=== PATIENT | female | born 1975 | race Caucasian/White ===

== ENCOUNTER → 2017-06-23 | Outpatient (CLI) | payer OTHER | LOC: GMAH 10:25 | PROVIDERS: ATTEND Family Medicine | DX: E03.9 Hypothyroidism, unspecified (principal) ==

== ENCOUNTER → 2018-06-29 | Outpatient (CLI) | payer BC | LOC: GMAH 10:42 | PROVIDERS: ATTEND Family Medicine | DX: E03.9 Hypothyroidism, unspecified (principal) ==

== ENCOUNTER 2018-09-10 15:00 | Inpatient (IN) | payer BC ==
--- NOTE | 2018-09-10 15:11 | HP ---
SUPERVISING PHYSICIAN: Zeeshan Martinez M.D. CHIEF COMPLAINT: Worsening shortness of breath and treatment failure for right sided pneumonia. HISTORY OF PRESENT ILLNESS: Ms. Jimenez is a 43 year-old female patient that was initially seen [address] Aguiar's office for upper respiratory symptoms. At that time she was found to have chest congestion and what appeared to be on x-ray a perihilar pneumonia and was started on treatment initially with an injection of antibiotics and steroids, and an outpatient treatment with Z-Primitivo and Keflex for 7 days. She then reported back to Dr. Aguiar's office this past Monday a week ago with minimal improvement in symptoms and was started on Biaxin as well as given a steroid Medrol Dosepak, and another antibiotic injection. Dr. Aguiar at that time re-did an x-ray and again showed questionable pneumonia and given that she had minimal response, recommended the patient be admitted, however the patient refused admission to the hospital and continued with outpatient measures for treatment. She reported back today with very minimal response to treatment, if not worse. Dr. Aguiar then requested that the patient be directly admitted for failure of treatment of right sided pneumonia having been on 2 weeks of antibiotics, updraft treatments and steroid injections as well as oral steroids. She was admitted in stable condition directly from the clinic. PAST MEDICAL HISTORY: 1. Hypertension. 2. Hypothyroidism. PAST SURGICAL HISTORY: 1. Two section, one in 1996 and one in 2001. 2. Tubal ligation in 2002. HOME MEDICATIONS: 1. Albuterol nebulizer updrafts 0.083% q.i.d. as directed and p.r.n. 2. Albuterol inhaler 2 puffs every 6 hours as needed for wheezing. 3. Levothyroxine 0.75 mg one daily. 4. Lisinopril/Hydrochlorothiazide 10 mg/12.5 mg one b.i.d. 5. Promethazine with codeine 6.25 mg/10 mg, 5 mL syrup 1 to 2 teaspoons every 4 hours as needed. ALLERGIES: NO KNOWN DRUG ALLERGIES. FAMILY HISTORY: Mom has hypothyroidism and hypertension. Father is unknown. She has 1 brother who has hypertension, a sister has hypertension. Two children who are both healthy. SOCIAL HISTORY: The patient has never smoked. She drinks alcohol very infrequently. Does not use illicit drugs. She currently works in an [employer]. She is and lives in [place], [place]. REVIEW OF SYSTEMS: CONSTITUTIONAL: Negative for chills, fevers or unintentional weight gain. HEENT: Negative for ear aches, sore throat, nasal congestion, vision changes. CARDIOVASCULAR: Negative for chest pains, palpitations, syncopal episodes, tachycardia. RESPIRATORY: Positive for productive cough but negative for any worsening exertional dyspnea. GASTROINTESTINAL: Negative for constipation, diarrhea, abdominal pains. MUSCULOSKELETAL: Negative for any arthralgias, back pain or myalgias. INTEGUMENT: Negative for any jaundice or rashes. NEUROLOGIC: Negative for ataxia, headaches, seizure activity or other focal deficits. PHYSICAL EXAMINATION: VITAL SIGNS: Temperature on admission was 98.2, pulse initially was 120, blood pressure 125/92, respirations 18, satting 95% on room air at rest. Admission weight 145.9 kg with a body mass index of 53.8. GENERAL: On admission to the Medical/Surgical floor the patient appears to be comfortable, resting, in no acute distress. She is alert. HEENT: Tympanic membranes are clear bilaterally. Oropharynx is pink and moist without any lesions. NECK: Supple, non-tender. Full range of motion. CHEST: Lung sounds are diminished towards the bases with some notable rhonchi heard on the right posterior aspect. No wheezing or rales. CARDIOVASCULAR: Regular rate and rhythm without any appreciable murmurs, gallops, or rubs. ABDOMEN: Obese but soft, non-tender. Positive bowel sounds. EXTREMITIES: Without any clubbing, cyanosis or edema. NEUROLOGIC: She is alert and oriented times three. LABORATORY: White count in the clinic showed a leukocytosis of 22,000 with a left shift. Chemistries on admission showed potassium 3.2 with BUN 19, creatinine 1.11, lactic acid 1.1. Liver functions were all within normal limits. MICROBIOLOGY: Blood culture is pending. Sputum culture is pending. RADIOLOGY: Two view chest x-ray in the clinic showed per Dr. Aguiar's interpretation, perihilar pneumonia on the right side. ASSESSMENT: 1. Right sided pneumonia, community acquired, having failed to respond to treatment as an outpatient. 2. History of hypertension. 3. Electrolyte imbalance with mild hypokalemia. 4. History of hypothyroidism on supplementation. 5. Morbid obesity with a body mass index greater than 50. PLAN: The patient is going to be a direct admission for treatment failure of treatment of right sided pneumonia. Given that she has been on Biaxin and cephalosporins, both Rocephin and Keflex, will go ahead and start her on Levaquin given that she has had 2 weeks of treatment failure. At this point will hold off on any steroids as she is not wheezing. Will go ahead and start her on some IV fluids with normal saline with 20 of potassium to help correct the potassium level at 125 an hour after she received initial bolus of LR 1 liter. Will plan to repeat labs in the morning. She will be on aggressive pulmonary hygiene with q.i.d. DuoNeb treatments as well as chest percussive therapy. Will anticipate her length of stay to be at least 2 to 3 days. Will repeat labs and chest x-ray in the morning. Until she can transition to outpatient management will continue to monitor and treat as needed. #[id number] [facility]
[2018-09-10] MEDS ORDERED: SODIUM CHLORIDE 0.9% (FLUSH) 10 ML SYG IV PRN (15:51)
[2018-09-10] MEDS ORDERED: IBUPROFEN 400 MG TAB PO PRN (15:51)
[2018-09-10] MEDS ORDERED: ACETAMINOPHEN 325 MG TAB PO PRN (15:51)
[2018-09-10] MEDS ORDERED: ONDANSETRON INJ 4 MG/2 ML VIAL IV PRN (15:51)
[2018-09-10] MEDS ORDERED: ALBUTEROL SULFATE 2.5 MG/3 ML VIAL NEB PRN (15:51)
[2018-09-10] MEDS ORDERED: IV SET AND CAP CHANGE INJ INJ SCH (16:00)
[2018-09-10] MEDS: IPRATROPIUM/ALBUTEROL 3 ML VIAL INH SCH ×2 (16:20→19:45)
[2018-09-10] MEDS: levoFLOXacin 750MG IV 750 MG in PREMIX BAG 1 BAG IVPB SCH (16:43)
[2018-09-10] MEDS ORDERED: LACTATED RINGERS 1,000 ML IVS ONE (16:48)
[2018-09-10] MEDS: KCL 20 MEQ/NS 1,000 ML IVS PRN (19:48)
[2018-09-10] MEDS: NON-FORMULARY MEDICATION 1 EA MIS (Lisinopril & Hydrochlorothiazi [Lisinopril/Hctz 10-12.5 PO SCH (21:17)
[2018-09-11] MEDS: KCL 20 MEQ/NS 1,000 ML IVS PRN (04:49)
[2018-09-11] MEDS: LEVOTHYROXINE SODIUM 0.075 MG TAB PO SCH (06:29)
[2018-09-11] MEDS: PANTOPRAZOLE SODIUM IV 40 MG VIAL IV SCH (06:29)
--- NOTE | 2018-09-11 07:15 | RAD ---
EXAM DESCRIPTION: Chest,2 Views CLINICAL HISTORY: Pneumonia COMPARISON: None available FINDINGS: The cardiomediastinal silhouette is unremarkable. There is no airspace consolidation or pleural effusion. The bronchovascular markings are within normal limits, and the lungs are not hyperinflated. There is no pneumothorax or acute fracture. IMPRESSION: Negative exam. Electronically signed by: Jeancarlos Pierre MD 09/11/2018 7:12 AM [facility]
[2018-09-11] MEDS: IPRATROPIUM/ALBUTEROL 3 ML VIAL INH SCH ×4 (08:04→20:43)
[2018-09-11] MEDS: NON-FORMULARY MEDICATION 1 EA MIS (Lisinopril & Hydrochlorothiazi [Lisinopril/Hctz 10-12.5 PO SCH (09:07)
[2018-09-11] MEDS ORDERED: PROMETHAZINE W/CODEINE SYR 5 ML UD PO PRN (11:30)
[2018-09-11] MEDS: BUDESONIDE NEBS 0.5 MG/2 ML VIAL NEB SCH ×2 (12:25→20:43)
[2018-09-11] MEDS: levoFLOXacin 750MG IV 750 MG in PREMIX BAG 1 BAG IVPB SCH (15:58)
--- NOTE | 2018-09-11 18:42 | PN ---
DATE: 09/11/18 SUPERVISING PHYSICIAN: Zeeshan Martinez M.D. SUBJECTIVE: The patient reports that although she is still not able to cough anything up she feels like her breathing has improved since admission. She was unable to sleep very much last night, but notes that her symptoms are not as dramatic as they were prior to admission. OBJECTIVE: VITAL SIGNS: Temperature 98.1, pulse 91, blood pressure 124/76, respirations 16, satting 99% on room air at rest. I's and O's show a positive balance of 150 with 1600 in, 1150 out. Weight is 145.9 kg. GENERAL: The patient is resting comfortably. Appears to be in no acute distress. She is alert. CHEST: Lung sounds are notably improved in volume with breath sounds heard throughout all tapia and bases compared to admission. No wheezing or rales are noted. HEART: Regular rate and rhythm. ABDOMEN: Obese but soft, non- tender. Positive bowel sounds. EXTREMITIES: No edema. NEUROLOGIC: She is alert and oriented times three. LABORATORY: White count showed some improvement. It is down to 16.1 and left shift is resolving. Chemistries: Potassium is up to 3.4, BUN 16, creatinine 0.96, calcium 8.1. MICROBIOLOGY: Blood cultures are pending and negative since admission. RADIOLOGY: Chest x-ray this morning per radiology interpretation showed no obvious areas of consolidation. ASSESSMENT: 1. Right sided pneumonia, community acquired, failing to respond to outpatient treatment, improving with parenteral antibiotics. 2. History of hypertension showing to be stable. 3. Electrolyte imbalance with mild hypokalemia, improving with fluids. 4. History of hypothyroidism on supplementation. 5. Morbid obesity with a body mass index greater than 50. PLAN: Will continue aggressive management in regards to pulmonary hygiene. She continues on antibiotic coverage with Levaquin. Will hold off on any steroids at this point, at least systemically as she continues to show improvement, but will go ahead and try some Pulmicort. She is now saline locked. I have encouraged her to ambulate to ensure she is maintaining her oxygenation without any supplementation on any kind of exertional effort. Will anticipate hopefully being able to discharge tomorrow to continue with outpatient management with Levaquin and to followup with Dr. Aguiar, her primary care provider. Until then will continue to monitor and treat as needed. #[id number] [facility]
[2018-09-11] MEDS: LISINOPRIL 10 MG TAB PO SCH (20:38)
[2018-09-11] MEDS: hydroCHLOROthiazide 12.5 MG CAP PO SCH (20:38)
[2018-09-12] MEDS: PANTOPRAZOLE SODIUM IV 40 MG VIAL IV SCH (06:19)
[2018-09-12] MEDS: LEVOTHYROXINE SODIUM 0.075 MG TAB PO SCH (06:19)
[2018-09-12 06:43] VITALS: TEMP 98.6
[2018-09-12] MEDS: BUDESONIDE NEBS 0.5 MG/2 ML VIAL NEB SCH (08:25)
[2018-09-12] MEDS: IPRATROPIUM/ALBUTEROL 3 ML VIAL INH SCH ×3 (08:25→17:00)
[2018-09-12] MEDS: LISINOPRIL 10 MG TAB PO SCH (09:08)
[2018-09-12] MEDS: hydroCHLOROthiazide 12.5 MG CAP PO SCH (09:08)
[2018-09-12 15:10] VITALS: BP 104/70; O2SAT 95
[2018-09-12] MEDS: levoFLOXacin 750MG IV 750 MG in PREMIX BAG 1 BAG IVPB SCH (15:30)
--- NOTE | 2018-09-12 20:16 | DS ---
SUPERVISING PHYSICIAN: Zeeshan Martinez M.D. ADMISSION DIAGNOSIS: 1. Right sided pneumonia, failed outpatient therapy. 2. Hypertension. 3. Electrolyte imbalance. 4. History of hypothyroidism. 5. Morbid obesity. DISCHARGE DIAGNOSIS: 1. Right sided pneumonia, failed outpatient therapy. 2. Hypertension. 3. Electrolyte imbalance. 4. History of hypothyroidism. 5. Morbid obesity. HISTORY OF PRESENT ILLNESS: This is a 43 year-old female who was seen in Dr. Aguiar's office a couple of weeks ago for upper respiratory infections. At that time she was found to have perihilar pneumonia and was treated with a Z-Primitivo and Keflex for 7 days. She went back to Dr. Aguiar's office this past Monday with minimal improvement in symptoms and was started on Biaxin as well as given a Medrol Dosepak. She was given an injection of antibiotics as well. Another x-ray was done and it showed pneumonia, so she was referred for ambulation for failed outpatient therapy. Over the past couple of days her symptoms have improved. Her white count has improved and clinically she feels a lot better, therefore she will go home today after her Levaquin infusion. I am also ordering home medications to be continued with p.o. Levaquin as well as adding Pulmicort to her nebulizer. I do recommend after her acute illness resolves that she get a spirometry to see if she has any sort of asthma or obstructive disease as she has episodes where she has wheezing and is prescribed oral steroids with no documented history of asthma or COPD. Diet is as tolerated. Will continue her other home medications as well. #[id number] [facility]
== END 2018-09-12 17:00 | disposition home or self-care (01) | DRG 194 ==
LOC: MS 15:00
PROVIDERS: ADMIT Family Medicine; ATTEND Nurse Practitioner
DX: J18.9 Pneumonia, unspecified organism (principal); Z68.43 Body mass index [BMI] 50.0-59.9, adult; I10 Essential (primary) hypertension; E03.9 Hypothyroidism, unspecified; E66.01 Morbid (severe) obesity due to excess calories; E87.6 Hypokalemia

== ENCOUNTER → 2020-05-12 | Outpatient (CLI) | payer BC | LOC: GMA MATASK 10:55 | PROVIDERS: ATTEND Family Medicine | DX: E03.9 Hypothyroidism, unspecified (principal) ==

== ENCOUNTER 2020-06-18 13:46 | Emergency (ER) | payer BC ==
--- NOTE | 2020-06-18 14:11 | ED.PDOC ---
History of Present Illness - General Chief Complaint: General Time Seen by Provider: 06/18/20 13:48 Source: patient, RN notes reviewed, Vital Signs reviewed Exam Limitations: no limitations - History of Present Illness Initial Comments: 44 yo F comes in after she was found to have an elevated d-dimer on her blood work. States this morning has sharp substernal chest pain that lasted seconds. Also has had a gradual cough for the past 7 days. 10 days ago dx with covid. No current chest pain, no recent travel or immobilization. no family hx of CAD. Allergies/Adverse Reactions: Allergies NO KNOWN ALLERGY Allergy (Verified 06/18/20 14:11) Home Medications: Ambulatory Orders RX: Levothyroxine Sodium 75 mcg PO 0700 09/10/18 RX: Lisinopril & Hydrochlorothiazi [Lisinopril/Hctz 10-12.5 mg] 1 tab PO BID 09/10/18 RX: Albuterol Sulfate Nebs [Proventil Nebs] 2.5 mg NEB Q4H PRN vial 09/12/18 RX: Budesonide (Inhalation) [Budesonide] 0.25 mg IN BID 30 Days #60 ml 09/12/18 Levofloxacin [Levaquin] 750 mg PO DAILY #5 tab 06/18/20 Review of Systems - Review of Systems Constitutional: Denies: chills, fever, malaise EENTM: Denies: blurred vision, throat pain Respiratory: States: cough. Denies: short of breath, stridor Cardiology: States: chest pain - resolved,. Denies: palpitations, syncope Gastrointestinal/Abdominal: Denies: abdominal pain, nausea, vomiting Genitourinary: Denies: discharge, frequency, hematuria Musculoskeletal: States: back pain - low Skin: Denies: rash Neurological: Denies: headache, numbness, seizure Endocrine: Denies: unexplained weight gain, unexplained weight loss Hematologic/Lymphatic: Denies: blood clots, easy bleeding, easy bruising Past Medical History (General) - Patient Medical History Hx Seizures: No Hx Stroke: No Hx Asthma: No Hx of COPD: No Hx Congestive Heart Failure: No Hx Pacemaker: No Hx Hypertension: Yes Hx Diabetes: No Hx Gastroesophageal Reflux: No Hx Renal Disease: No Hx Cancer: No Hx of HIV: No Hx Hepatitis B: No Hx Hepatitis C: No Hx MRSA: No - Social History Hx Alcohol Use: No Hx Substance Use: No Hx Physical Abuse: No - Female History Hx Last Menstrual Period: 09/10/18 Family Medical History - Family History Mother Living Status: Still Living Hx Family Hypertension: Yes Hx Family;Other: thyriod Father Family History: Unknown Physical Exam - Physical Exam General Appearance: Alert, Comfortable, No apparent distress, Well Developed, Well Groomed, Well Hydrated, Well Nourished Eye Exam: bilateral normal Ears, Nose, Throat: hearing grossly normal, normal ENT inspection, normal pharynx Neck: non-tender, full range of motion, supple, normal inspection Respiratory: chest non-tender, lungs clear, normal breath sounds, no respiratory distress, no accessory muscle use Cardiovascular/Chest: normal peripheral pulses, regular rate, rhythm, no edema, no gallop, no JVD, no murmur Peripheral Pulses: radial,right: 2+, radial,left: 2+ Gastrointestinal/Abdominal: normal bowel sounds, non tender, soft Rectal Exam: deferred Back Exam: normal inspection, no CVA tenderness, no vertebral tenderness Extremity: non-tender, normal inspection, no pedal edema, no calf tenderness, normal capillary refill Neurologic: no motor/sensory deficits, alert, normal mood/affect, oriented x 3 Skin Exam: normal color, warm/dry Progress - Progress Progress: 06/18/20 15:08 The data reviewed when caring for this patient included: nurse notes, prior records, etc. The history and assessments from nurses notes were reviewed and considered, and the patient's home medication list was also reviewed and considered. My assessment and the results of testing completed here in the ED were discussed with the patient/family. All questions were answered, and they express understanding of my assessment and the plan. They have been instructed to return if their symptoms worsen, and have been asked to follow up with their primary care physician to recheck today's presenting complaint. Strict return precautions given. I have reviewed medication, benefits, alternatives and side effects. Patient decided to proceed with medication. Anya Sosa DO #[id number] - Results/Orders Results/Orders: 06/18/20 14:11 URINALYSIS Stat 06/18/20 14:15 EKG STAT 06/18/20 14:27 RAPID SARS-CoV-2 RNA Stat Laboratory Results WBC 17.4 K/mm3 (4.8-10.8) H 06/18/20 14:18 RBC 4.47 M/mm3 (4.20-5.40) 06/18/20 14:18 Hgb 14.0 gm/dL (12.0-16.0) 06/18/20 14:18 Hct 40.1 % (36.0-47.0) 06/18/20 14:18 MCV 89.7 fl (81.0-99.0) 06/18/20 14:18 MCH 31.4 pg (27.0-31.0) H 06/18/20 14:18 MCHC 35.0 g/dL (33.0-37.0) 06/18/20 14:18 RDW 12.8 % (11.5-14.5) 06/18/20 14:18 Plt Count 375 K/mm3 (130-400) 06/18/20 14:18 MPV 7.3 fl (7.40-10.4) L 06/18/20 14:18 Absolute Neuts (auto) 15.00 K/uL (1.8-6.8) H 06/18/20 14:18 Absolute Lymphs (auto) 1.50 K/uL (1.0-3.4) 06/18/20 14:18 Absolute Monos (auto) 0.80 K/uL (0.2-0.8) 06/18/20 14:18 Absolute Eos (auto) 0.00 K/uL (0.0-0.4) 06/18/20 14:18 Absolute Basos (auto) 0.10 K/uL (0.0-0.1) 06/18/20 14:18 Neutrophils % 86.6 % (42.0-78.0) H 06/18/20 14:18 Lymphocytes % 8.6 % (20.0-50.0) L 06/18/20 14:18 Monocytes % 4.4 % (2.0-9.0) 06/18/20 14:18 Eosinophils % 0.0 % (1.0-5.0) L 06/18/20 14:18 Basophils % 0.4 % (0.0-2.0) 06/18/20 14:18 Sodium 131 mmol/L (135-145) L 06/18/20 14:18 Potassium 3.5 mmol/L (3.6-5.0) L 06/18/20 14:18 Chloride 96 mmol/L (101-111) L 06/18/20 14:18 Carbon Dioxide 20 mmol/L (21-31) L 06/18/20 14:18 Anion Gap 18.5 (12-18) H 06/18/20 14:18 BUN 28 mg/dL (7-18) H 06/18/20 14:18 Creatinine 1.14 mg/dL (0.6-1.3) 06/18/20 14:18 BUN/Creatinine Ratio 24.6 (10-20) H 06/18/20 14:18 POC Glucose 258 mg/dL (70-105) H 06/18/20 15:31 Random Glucose 278 mg/dL (70-105) H D 06/18/20 14:18 Serum Osmolality 278.1 mOsm/L (275-295) 06/18/20 14:18 Calcium 8.5 mg/dL (8.4-10.2) 06/18/20 14:18 Total Bilirubin 0.5 mg/dL (0.2-1.0) 06/18/20 14:18 AST 23 IU/L (10-42) 06/18/20 14:18 ALT 31 IU/L (10-60) 06/18/20 14:18 Alkaline Phosphatase 53 IU/L (42-121) 06/18/20 14:18 Troponin I < 0.02 ng/mL (0.01-0.05) 06/18/20 14:18 B-Natriuretic Peptide 31.3 pg/ml (0-100) 06/18/20 14:18 Serum Total Protein 7.6 gm/dL (6.4-8.2) 06/18/20 14:18 Albumin 3.3 g/dl (3.2-5.5) 06/18/20 14:18 Globulin 4.3 gm/dL (2.3-3.5) H 06/18/20 14:18 Albumin/Globulin Ratio 0.8 (1.1-1.9) L 06/18/20 14:18 - EKG/XRAY/CT EKG: Sinus - rate 84 Comments: normal intervals, no acute ischemia, normal ekg CT: CTA chest negative for PE Departure - Departure Clinical Impression: Pneumonia due to COVID-19 virus, Hyperglycemia, drug-induced Time of Disposition: 15:06 Disposition: Discharge to Home or Self Care Departure Forms: ED Discharge - Pt. Copy, Patient Portal Self Enrollment Instructions: Cough in Adults, Hyperglycemia, Adult (DC), Coronavirus Disease 2019 (COVID-19) Diet: diabetic diet Activity: increase activity as tolerated Referrals: Wil Aleman MD [Primary Care Provider] - 1-5 Days Prescriptions: Levofloxacin [Levaquin] 750 mg PO DAILY #5 tab Home Medications: Ambulatory Orders RX: Levothyroxine Sodium 75 mcg PO 0700 09/10/18 RX: Lisinopril & Hydrochlorothiazi [Lisinopril/Hctz 10-12.5 mg] 1 tab PO BID 09/10/18 RX: Albuterol Sulfate Nebs [Proventil Nebs] 2.5 mg NEB Q4H PRN vial 09/12/18 RX: Budesonide (Inhalation) [Budesonide] 0.25 mg IN BID 30 Days #60 ml 09/12/18 Levofloxacin [Levaquin] 750 mg PO DAILY #5 tab 06/18/20
[2020-06-18] MEDS ORDERED: SODIUM CHLORIDE 0.9% 1000ML 1,000 ML IVS ONE (14:15)
[2020-06-18 14:22] VITALS: TEMP 97.8
--- NOTE | 2020-06-18 14:55 | CT ---
Study: CT angiography of the chest, pulmonary embolus protocol. Indication: elevated d-dimer, cough Technique: Axial CT images were acquired through the chest after intravenous administration of contrast utilizing the CT angiography, pulmonary embolus protocol. Computer-generated 3D reconstructions (MIPS) were performed and reviewed. This exam was performed according to our departmental dose-optimization program, which includes automated exposure control, adjustment of the mA and/or kV according to patient size and/or use of iterative reconstruction technique. Comparison: None Findings: Evaluation for pulmonary embolus is significantly limited due to respiratory motion artifact. Given this limitation, no pulmonary embolus identified within the main pulmonary arteries. Heart size normal. Several reactive size scattered mediastinal and hilar lymph nodes. Degenerative changes of the spine noted. Moderate patchy areas of groundglass consolidation throughout the bilateral lungs and most prominent at the right lower lobe concerning for pneumonia. No pleural effusion or pneumothorax. Impression: No central pulmonary embolus identified. Distal evaluation limited due to motion degradation. Patchy groundglass consolidation bilateral lungs concerning for pneumonia. COVID-19 could give this appearance. Electronically signed by: Shawn Perry MD 06/18/2020 2:53 PM [employer]
[2020-06-18 15:42] VITALS: BP 140/70
[2020-06-18 16:09] VITALS: O2SAT 97
== END 2020-06-18 15:57 | disposition home or self-care (01) ==
LOC: ER 13:46
DX: U07.1 COVID-19 (principal); J12.89 Other viral pneumonia; R73.9 Hyperglycemia, unspecified; T50.905A Adverse effect of unspecified drugs, medicaments and biological substances, initial encounter; M54.5 Low back pain; I10 Essential (primary) hypertension; Z79.899 Other long term (current) drug therapy
CPT/HCPCS: 36415; 36416; 71275; 80053; 82948; 83880; 84484; 85025; 93005; J7030

== ENCOUNTER → 2020-06-18 | Outpatient (CLI) | payer BC ==
--- NOTE | 2020-06-19 10:11 | RAD ---
EXAM DESCRIPTION: Chest,2 Views CLINICAL HISTORY: 44 years Female, COVID-19 COMPARISON: 12 September 2018 TECHNIQUE: PA/lateral FINDINGS: Minimal interstitial infiltrate is observed in both lungs. The heart is within range of normal. No pleural fluid is seen. IMPRESSION: Minimal interstitial infiltrate is observed in both lungs and may represent early evidence of a viral pneumonia. Electronically signed by: Robb Dimas MD 06/19/2020 10:09 AM [facility]
== END ==
LOC: LAB.O 11:17
PROVIDERS: ATTEND Family Medicine
DX: U07.1 COVID-19 (principal); R91.8 Other nonspecific abnormal finding of lung field